=== PATIENT | female | born 1990 | race Caucasian/White ===

== ENCOUNTER 2018-01-06 13:34 | Emergency (ER) | payer OTHER, SELFPAY ==
[~2018-01-06] VITALS: Ht 162.6 cm; Wt 68.0 kg
[2018-01-06] MEDS ORDERED: EFFEXOR XR37.5 MG PO (13:59)
[2018-01-06] MEDS ORDERED: XANAX1 MG PO (13:59)
[2018-01-06] MEDS ORDERED: TRAZODONE 150150 M1 PO (14:00)
[2018-01-06] MEDS ORDERED: LEVOTHYROXINE100 MC1 IV (14:00)
[2018-01-06 14:23] LABS: URINE BILIRUBIN NEGATIVE (Negative); URINE BLOOD NEGATIVE (Negative); URINE CLARITY CLEAR; URINE COLOR YELLOW; URINE GLUCOSE-RANDOM NEGATIVE (Negative); URINE KETONES NEGATIVE (Negative); URINE LEUKOCYTES-REFLEX NEGATIVE (Negative); URINE NITRITE-REFLEX NEGATIVE (Negative); URINE PROTEIN NEGATIVE (Negative); URINE SPECIFIC GRAVITY <= 1.005 (1.005-1.030); URINE UROBILINOGEN 0.2 E.U./dl (0.2-1.0)
[2018-01-06 14:39] LABS: AMP/METHAMP Negative (Negative); BARBITURATES Negative (Negative); BENZODIAZEPINES Negative (Negative); COCAINE Negative (Negative); METHADONE Negative (Negative); OPIATES Negative (Negative); PCP Negative (Negative); THC Negative (Negative)
[2018-01-06 14:40] LABS: ABSOLUTE LYMPHOCYTES 2.4 thou/uL (0.8-5.3); ABSOLUTE MONOCYTES 0.4 thou/uL (0.0-1.2); BASOPHILS 0.5 %; EOSINOPHILS 0.6 %; HEMOGLOBIN 13.2 gm/dL (12.0-15.0); LYMPHOCYTES 34.6 %; MCH 26.6 pg (26.0-34.0); MCHC 33.9 g/dL (28.0-37.0); MCV 78.4 fL (80.0-100.0); MPV 7.3 fl. (7.2-11.1); NUCLEATED RBCS 0 /100WBC; PLATELET COUNT* 308 thou/uL (150-400); POLYS 58.3 %; RBC 4.97 mil/uL (4.20-5.00); RDW-CV 13.6 % (10.5-14.5); WBC 6.8 thou/uL (4.0-11.0)
[2018-01-06 14:47] LABS: CALCIUM 9.3 mg/dL (8.5-10.1); CREATININE 0.7 mg/dL (0.6-1.3); POTASSIUM 3.6 mmol/L (3.5-5.1)
[2018-01-06 14:52] LABS: ALBUMIN 3.9 g/dL (3.4-5.0); TOTAL BILIRUBIN 0.2 mg/dL (<0.1-1.0); TOTAL PROTEIN 7.9 g/dL (6.4-8.2)
[2018-01-06 15:47] LABS: INFLUENZA A ANTIGEN None Detected (None Detect); INFLUENZA B ANTIGEN None Detected (None Detect)
[2018-01-06 16:24] VITALS: BP 106/67
--- NOTE | 2018-01-07 15:48 | EKG ---
[place] [address] ELECTROCARDIOGRAM REPORT Name: TERRELL GRAY Room: [facility]#: [id number] Admission: 01/06/18 Attend Phys: Discharge: 01/06/18 Date of : 88 Report #: [id number] THIS REPORT FOR: //name// [facility] ED Test Date: 2018-01-06 Test Time: 14:19:41 Pat Name: TERRELL GRAY Department: Room: Gender: F Vrt Mechanic: DEANNA : 1990 Requested By: Mariza Bearden Order Number: [id number] MD: Daniel Baird Measurements Intervals [place] Rate: 75 P: 22 FL: 137 QRS: 10 QRSD: 101 T: 24 QT: 366 QTc: 409 Interpretive Statements Sinus rhythm Low voltage, precordial leads RSR' in V1 or V2, right VCD Borderline T abnormalities, anterior leads No previous ECG available for comparison Electronically Signed On 01-07-2018 15:48:32 [employer] by Daniel Baird [email or web address] <ELECTRONICALLY SIGNED> By: Daniel Baird MD, [facility] 01/07/18 1548 1419 1419 Daniel Baird MD, FAC /EPI
== END 2018-01-06 16:25 | disposition home or self-care (01) ==
LOC: M.ERS 13:34
PROVIDERS: Nurse Practitioner Family
DX: R51 Headache (principal); F43.10 Post-traumatic stress disorder, unspecified; F41.0 Panic disorder [episodic paroxysmal anxiety]

== ENCOUNTER 2018-03-15 17:39 | Emergency (ER) | payer OTHER ==
[~2018-03-15] VITALS: Ht 162.6 cm; Wt 54.4 kg
[~2018-03-15 17:39] MED LIST: EFFEXOR XR37.5 MG PO; LEVOTHYROXINE100 MC1 IV; TRAZODONE 150150 M1 PO; XANAX1 MG PO
[2018-03-15] MEDS ORDERED: OMEPRAZOLE20 M2 PO (17:47)
[2018-03-15 18:52] LABS: AMP/METHAMP Negative (Negative); BARBITURATES Negative (Negative); BENZODIAZEPINES Negative (Negative); COCAINE Negative (Negative); METHADONE Negative (Negative); OPIATES Negative (Negative); PCP Negative (Negative); THC Negative (Negative)
[2018-03-15 19:03] VITALS: BP 144/75
== END 2018-03-15 19:04 | disposition home or self-care (01) ==
LOC: M.ERS 17:39
PROVIDERS: Nurse Practitioner Family
DX: S61.211A Laceration without foreign body of left index finger without damage to nail, initial encounter (principal); F43.10 Post-traumatic stress disorder, unspecified; F41.0 Panic disorder [episodic paroxysmal anxiety]; W26.0XXA Contact with knife, initial encounter; Y93.89 Activity, other specified; Y92.89 Other specified places as the place of occurrence of the external cause; Y99.8 Other external cause status

== ENCOUNTER 2018-03-17 17:04 | Emergency (ER) | payer OTHER, SELFPAY ==
[~2018-03-17] VITALS: Ht 165.1 cm; Wt 54.4 kg
[~2018-03-17 17:04] MED LIST changes: +OMEPRAZOLE20 M2 PO
[2018-03-17 17:24] LABS: HEMATOCRIT 38.8 % (37.0-47.0); HEMOGLOBIN 13.1 gm/dL (12.0-15.0); MCH 26.8 pg (26.0-34.0); MCHC 33.8 g/dL (28.0-37.0); MCV 79.3 fL (80.0-100.0); MPV 7.1 fl. (7.2-11.1); NUCLEATED RBCS 0 /100WBC; PLATELET COUNT* 320 thou/uL (150-400); RBC 4.89 mil/uL (4.20-5.00); RDW-CV 12.9 % (10.5-14.5); WBC 11.9 thou/uL (4.0-11.0)
[2018-03-17 17:32] LABS: CREATININE 0.7 mg/dL (0.6-1.3); POTASSIUM 3.7 mmol/L (3.5-5.1)
[2018-03-17 17:34] LABS: APTT 25.5 Seconds (25.0-31.3); INR 1.1; PROTIME 10.3 Seconds (9.20-11.50)
[2018-03-17 17:39] LABS: ACETAMINOPHEN < 2 ug/mL (10-30); ALCOHOL < 10 mg/dL (<10); SALICYLATE < 2.8 mg/dL (2.8-20.0)
[2018-03-17 17:43] LABS: TOTAL BILIRUBIN 0.2 mg/dL (<0.1-1.0); TOTAL PROTEIN 8.1 g/dL (6.4-8.2)
[2018-03-17 17:58] LABS: ABSOLUTE LYMPHOCYTES 1.1 thou/uL (0.8-5.3); ABSOLUTE MONOCYTES 0.5 thou/uL (0.0-1.2); ABSOLUTE NEUTROPHILS 10.4 thou/uL (1.6-8.1)
[2018-03-17 17:59] LABS: PLATELET ESTIMATE ADEQUATE
[2018-03-17 18:18] VITALS: BP 105/75
== END 2018-03-17 18:20 | disposition home or self-care (01) ==
LOC: M.ERS 17:04
PROVIDERS: Family Medicine
DX: F41.0 Panic disorder [episodic paroxysmal anxiety] (principal); F43.10 Post-traumatic stress disorder, unspecified

== ENCOUNTER 2018-03-22 16:31 | Emergency (ER) | payer OTHER ==
[~2018-03-22] VITALS: Ht 162.6 cm; Wt 68.0 kg
[2018-03-22 16:37] VITALS: BP 117/74
== END 2018-03-22 16:52 | disposition home or self-care (01) ==
LOC: M.ERS 16:31
DX: S61.211D Laceration without foreign body of left index finger without damage to nail, subsequent encounter (principal); E07.9 Disorder of thyroid, unspecified; F41.0 Panic disorder [episodic paroxysmal anxiety]; X58.XXXD Exposure to other specified factors, subsequent encounter